=== PATIENT | male | born 1930 | race Caucasian/White ===

== ENCOUNTER 2017-12-24 01:59 | Emergency (ER) | payer MEDICARE, OTHER ==
[~2017-12-24] VITALS: Ht 180.3 cm; Wt 70.8 kg
[2017-12-24 01:13] VITALS: BP 199/79
[~2017-12-24 01:59] MED LIST: ALBU18HF2 INH; AMLO5TAB PO; ASCO500C15 PO; ATOR20TA66 PO; CHOL100024 PO; CLOP75TA15 PO; CYAN-19 PO; FINA5TAB11 PO; LEVO75TA PO; LORA10TA7 PO; METO25TA6 PO; OMEP40CA37 PO; TAMS0.4C32 PO; TIOT18CA3 INH
== END 2017-12-24 02:31 | disposition home or self-care (01) ==
LOC: ER 02:31
DX: K94.23 Gastrostomy malfunction (principal); I10 Essential (primary) hypertension; J44.9 Chronic obstructive pulmonary disease, unspecified; Z98.890 Other specified postprocedural states; Z88.8 Allergy status to other drugs, medicaments and biological substances; Z79.899 Other long term (current) drug therapy
CPT/HCPCS: 43760; 99284; A6251

== ENCOUNTER 2018-01-25 14:16 | Outpatient (CLI) | payer MEDICARE, OTHER, BC ==
[2018-01-25] MEDS ORDERED: diatrozoate meglu/diatrozoate sod (37% iodine) 120ML oral solution ONE (14:40)
== END 2018-01-25 23:59 | disposition home or self-care (01) ==
LOC: RAD 14:16
PROVIDERS: ATTEND Surgery
DX: Z01.818 Encounter for other preprocedural examination (principal); C76.0 Malignant neoplasm of head, face and neck; M47.816 Spondylosis without myelopathy or radiculopathy, lumbar region; M16.0 Bilateral primary osteoarthritis of hip; I10 Essential (primary) hypertension; J44.9 Chronic obstructive pulmonary disease, unspecified; Z79.899 Other long term (current) drug therapy; Z87.891 Personal history of nicotine dependence
CPT/HCPCS: 74018; Q9963

== ENCOUNTER 2019-04-26 09:45 | Emergency (ER) | payer MEDICARE, BC ==
[~2019-04-26] VITALS: Ht 180.3 cm; Wt 72.7 kg
[~2019-04-26 09:45] MED LIST changes: -CYAN-19 PO; +CYAN-51 PO; +OMEP40CA13 PO; -OMEP40CA37 PO
[2019-04-26] MEDS ORDERED: CefTRIAXone 2gm/D5W 50ml 50 ML IV ONE (10:05)
[2019-04-26 11:14] LABS: BASOPHILS % (AUTO) 0.3 % (0-1); EOSINOPHILS % (AUTO) 0.6 % (0-6); HEMATOCRIT 40.3 % (42.0-52.0); HEMOGLOBIN 13.4 g/dl (14.0-17.9); LYMPHOCYTES # (AUTO) 0.4 X10'3 (1.1-4.8); LYMPHOCYTES % (AUTO) 4.5 % (21-51); MEAN CORPUSCULAR HGB CONC 33.3 g/dL (33.0-36.5); MEAN CORPUSCULAR VOLUME 81.1 FL (78-98); MEAN PLATELET VOLUME 8.8 FL (7.4-10.4); MONOCYTES # (AUTO) 0.9 X10'3 (0-0.9); MONOCYTES % (AUTO) 10.7 % (2-12); NEUTROPHILS % (AUTO) 83.9 % (42-75); PLATELET COUNT 175 X10'3 (140-440); RED BLOOD COUNT 4.98 X10'6 (4.70-6.10); RED CELL DISTRIBUTION WIDTH 15.6 % (11.5-14.5); WHITE BLOOD COUNT 8.3 X10'3 (4.5-11.0)
[2019-04-26 11:40] LABS: ALANINE AMINOTRANSFERASE 29 U/L (12-78); ALBUMIN 2.8 G/DL (3.4-5.0); ALBUMIN/GLOBULIN RATIO 0.7 (1.1-1.5); ALKALINE PHOSPHATASE 95 IU/L (46-116); ANION GAP 2 (8-16); ASPARTATE AMINO TRANSFERASE 24 U/L (10-37); BILIRUBIN,TOTAL 0.6 MG/DL (0.1-1.0); BLOOD UREA NITROGEN 36 MG/DL (7-18); BUN/CREATININE RATIO 23.2 (5.4-32.0); CALCIUM 8.6 MG/DL (8.5-10.1); CHLORIDE 101 MMOL/L (99-107); CREATININE 1.55 MG/DL (0.60-1.10); GLUCOSE 125 MG/DL (70-104); MAGNESIUM 2.5 MG/DL (1.5-2.4); POTASSIUM 4.8 MMOL/L (3.5-5.1); SODIUM 135 MMOL/L (135-145); TOTAL CARBON DIOXIDE 31.9 MMOL/L (24-32); TOTAL PROTEIN 6.7 G/DL (6.4-8.2); eGFR 43 ML/MIN
[2019-04-26] MEDS ORDERED: DOXY-243 PO (11:48)
[2019-04-26 12:51] VITALS: BP 165/72
== END 2019-04-26 12:57 | disposition home or self-care (01) ==
LOC: ER 09:45
DX: R91.8 Other nonspecific abnormal finding of lung field (principal); R06.02 Shortness of breath; J44.9 Chronic obstructive pulmonary disease, unspecified; I10 Essential (primary) hypertension; Z98.890 Other specified postprocedural states; Z88.8 Allergy status to other drugs, medicaments and biological substances; Z79.899 Other long term (current) drug therapy
CPT/HCPCS: 36415; 71046; 80053; 83605; 83735; 84145; 85025; 87040; 87502; 87503; 93005; 96365; 99285; J0696

== ENCOUNTER 2020-08-22 05:56 | Emergency (ER) | payer OTHER ==
[~2020-08-22] VITALS: Ht 180.3 cm; Wt 71.8 kg
[~2020-08-22 05:56] MED LIST changes: -ASCO500C15 PO; +ASCO500C18 PO; +LOP25T PO; -METO25TA6 PO; -OMEP40CA13 PO; +OMEP40CA21 PO
--- NOTE | 2020-08-22 06:13 | NUR ---
Needs 18 Singaporean, regular, G-tube
[2020-08-22 06:15] VITALS: BP 212/78
--- NOTE | 2020-08-22 06:38 | NUR ---
called OR to get [address] almonte request.
== END 2020-08-22 07:19 | disposition home or self-care (01) ==
LOC: ER 05:56
DX: K94.23 Gastrostomy malfunction (principal); I10 Essential (primary) hypertension; J44.9 Chronic obstructive pulmonary disease, unspecified; Z87.01 Personal history of pneumonia (recurrent); Z85.9 Personal history of malignant neoplasm, unspecified; Z88.8 Allergy status to other drugs, medicaments and biological substances; Z79.899 Other long term (current) drug therapy; Y83.3 Surgical operation with formation of external stoma as the cause of abnormal reaction of the patient, or of later complication, without mention of misadventure at the time of the procedure; Y73.1 Therapeutic (nonsurgical) and rehabilitative gastroenterology and urology devices associated with adverse incidents
CPT/HCPCS: 43762; 99284

== ENCOUNTER 2021-12-09 14:31 | Inpatient (IN) | payer OTHER, MEDICARE, BC ==
[~2021-12-09] VITALS: Ht 167.6 cm; Wt 60.0 kg
[2021-12-09] MEDS ORDERED: ipratropium/albuterol 3ml nebule NEB ONE (15:00)
[2021-12-09 15:09] LABS: BASOPHILS % (AUTO) 0.2 % (0-1); EOSINOPHILS % (AUTO) 0.1 % (0-6); HEMATOCRIT 25.8 % (42.0-52.0); HEMOGLOBIN 8.6 g/dl (14.0-17.9); LYMPHOCYTES # (AUTO) 0.3 X10'3 (1.1-4.8); LYMPHOCYTES % (AUTO) 2.2 % (21-51); MEAN CORPUSCULAR HEMOGLOBIN 27.1 PG (27.0-31.0); MEAN CORPUSCULAR HGB CONC 33.3 g/dL (33.0-36.5); MEAN CORPUSCULAR VOLUME 81.4 FL (78-98); MEAN PLATELET VOLUME 8.1 FL (7.4-10.4); MONOCYTES # (AUTO) 1.1 X10'3 (0-0.9); MONOCYTES % (AUTO) 8.3 % (2-12); NEUTROPHILS # (AUTO) 11.4 X10'3 (1.8-7.7); NEUTROPHILS % (AUTO) 89.2 % (42-75); PLATELET COUNT 164 X10'3 (140-440); RED BLOOD COUNT 3.17 X10'6 (4.70-6.10); RED CELL DISTRIBUTION WIDTH 16.2 % (11.5-14.5); WHITE BLOOD COUNT 12.8 X10'3 (4.5-11.0)
[2021-12-09 15:28] LABS: ALANINE AMINOTRANSFERASE 43 U/L (12-78); ALBUMIN 3.4 G/DL (3.4-5.0); ALBUMIN/GLOBULIN RATIO 1.1 (1.1-1.5); ALKALINE PHOSPHATASE 114 IU/L (46-116); ANION GAP 7 (8-16); ASPARTATE AMINO TRANSFERASE 49 U/L (10-37); BILIRUBIN,TOTAL 1.5 MG/DL (0.1-1.0); BLOOD UREA NITROGEN 36 MG/DL (7-18); BUN/CREATININE RATIO 16.4 (5.4-32.0); CALCIUM 9.2 MG/DL (8.5-10.1); CHLORIDE 87 MMOL/L (99-107); CREATININE 2.19 MG/DL (0.60-1.10); GLUCOSE 150 MG/DL (70-104); POTASSIUM 3.9 MMOL/L (3.5-5.1); SODIUM 127 MMOL/L (135-145); TOTAL CARBON DIOXIDE 32.7 MMOL/L (24-32); TOTAL PROTEIN 6.4 G/DL (6.4-8.2); eGFR 28 ML/MIN
[2021-12-09] MEDS ORDERED: furosemide 10 MG/1 ML 10ml inj IV ONE (15:35)
[2021-12-09] MEDS ORDERED: CefTRIAXone 2gm/D5W 50ml BAG 50 ML IV ONE (15:35)
[2021-12-09] MEDS ORDERED: heparin 25,000 UNIT/250ml bag 250 ML IV PRN (15:35)
[2021-12-09] MEDS ORDERED: heparin 10,000 units/1 ML INJ IV ONE (15:35)
[2021-12-09] MEDS ORDERED: LIDOcaine 2% 10ml TOPICAL JELLY (Urojet) TP ONE (15:35)
[2021-12-09 16:21] LABS: ABG BASE EXCESS 8.7 mmol/L (-2.0-2.0); ABG HCO3 33.4 mmol/L (22.0-26.0); ABG PCO2 (T) 46.9 mmHg (35.0-48.0); ABG PO2 (T) 59.1 mmHg (75.0-100.0); ALLEN'S TEST POSITIVE; FLOW 10 L/min; FMetHb 0.1 % (0.0-1.5); TOTAL HEMOGLOBIN 9.7 G/dl (14.0-17.9)
[2021-12-09] MEDS ORDERED: piperacillin/tazo 3.375gm/50ml 50 ML IV ONE (16:50)
--- NOTE | 2021-12-09 17:14 | NUR ---
DR HERNÁNDEZ AT BEDSIDE ,TALKING TO THE PT ,PT SPO2 DROPPED DOWN TO 72 % WHEN PT COUGHED UP AND THE T TUBE ACCIDENTLY DISLODGED.RT CALLED AT BEDSIDE .
[2021-12-09] MEDS ORDERED: HYDROcodone/acetaminophen 5mg/325mg tablet PO PRN (17:20)
[2021-12-09] MEDS ORDERED: acetaminophen 325mg tablet PO PRN ×2 (17:20)
[2021-12-09] MEDS ORDERED: mag hydrox/Alum hydrox/simeth 30ml oral suspension PO PRN (17:20)
[2021-12-09] MEDS ORDERED: ondansetron/PF 4mg/2ml inj IV PRN (17:20)
[2021-12-09] MEDS ORDERED: magnesium hydroxide 30ml (MOM) UD suspension PO PRN (17:20)
[2021-12-09] MEDS ORDERED: morphine 2 MG/ML inj. syringe IV PRN ×2 (17:20)
[2021-12-09 18:05] LABS: APTT > 139 SECONDS (22-32)
[2021-12-09] MEDS ORDERED: CLOP75TA34 PO (18:39)
[2021-12-09] MEDS ORDERED: OMEP1PAC7 PO (18:40)
[2021-12-09] MEDS ORDERED: FLO0.4C PO (18:42)
[2021-12-09] MEDS ORDERED: LEVO88TA2 PO (18:42)
[2021-12-09] MEDS ORDERED: FERR220S7 PO (18:42)
[2021-12-09] MEDS ORDERED: TIOT4MIS3 INH (18:42)
[2021-12-09] MEDS ORDERED: FLUT16SP NS (18:48)
[2021-12-09] MEDS ORDERED: FURO20TA4 PO (18:48)
[2021-12-09] MEDS ORDERED: AMLO2.5T5 PO (18:48)
[2021-12-09] MEDS ORDERED: FINA5TAB11 PO (19:07)
--- NOTE | 2021-12-09 19:43 | NUR ---
RT AT BEDSIDE.
[2021-12-09 19:54] LABS: ABG BASE EXCESS 6.4 mmol/L (-2.0-2.0); ABG HCO3 30.4 mmol/L (22.0-26.0); ABG OXYGEN SATURATION 92.3 % (94-97); ABG PCO2 (T) 40.8 mmHg (35.0-48.0); ABG PO2 (T) 64.4 mmHg (75.0-100.0); ALLEN'S TEST POSITIVE; FCOHb 0.8 % (0.0-3.9); FLOW 40 L/min; FMetHb 0.2 % (0.0-1.5); FO2Hb 91.4 % (94-97); PATIENT TEMPERATURE 36.6; TOTAL HEMOGLOBIN 9.2 G/dl (14.0-17.9)
[2021-12-09] MEDS: ipratropium/albuterol 3ml nebule NEB SCH ×2 (19:55→23:41)
[2021-12-09] MEDS: acetylcysteine 200 MG/ml 4ml vial INH SCH ×2 (19:55→23:41)
[2021-12-09] MEDS: cefepime 1GM/NS ADD-VANTAGE 100 ML IV SCH (20:00)
[2021-12-09] MEDS ORDERED: vancomycin/NS 1 GM ADD-VANTAGE 250 ML IV SCH (20:00)
[2021-12-09] MEDS: docusate sod 100mg capsule PO SCH (20:00)
--- NOTE | 2021-12-09 20:00 | NUR ---
PATIENT REPOSITIONED TO LEFT SIDE AT THIS TIME FOR COMFORT. BLANKETS PLACED BEHIND SACRUM FOR COMFORT, HOB ELEVATED, RT AT BEDSIDE.
--- NOTE | 2021-12-09 20:05 | NUR ---
PAGE SENT TO [facility] YOSEF JOHNSON TO CHANGE DIET TO TUBE FEEDING AND TABLETS/CAPSULE MEDICATIONS TO LIQUID (SEE EMAR).
[2021-12-09] MEDS ORDERED: acetaminophen 325mg tablet GT PRN ×2 (20:53)
[2021-12-09] MEDS: furosemide 20 MG/2 ML vial IV SCH (21:04)
--- NOTE | 2021-12-09 22:14 | NUR ---
TRACH TUBING SUCTIONED WITH YANKAUR AT THIS TIME.
[2021-12-09] MEDS ORDERED: heparin 10,000 units/1 ML INJ IV PRN (22:45)
--- NOTE | 2021-12-10 00:22 | NUR ---
HEPARIN GTT STOPPED DUE TO BERGER CATH DRAINING DK RED URINE. NOTIFIED DR JOHNSON AND AWAITING HER ARRIVAL
--- NOTE | 2021-12-10 00:35 | NUR ---
DR JOHNSON EVALUATING PT AT BEDSIDE, SEE NEW ORDERS.
--- NOTE | 2021-12-10 02:00 | NUR ---
PT DESATURATED JOHN TO 80'S AND LOW 78%. SLIGHT RESISTANCE WITH DEEP SUCTIONING, NOTIFIED RT WHO WS ABLE TO DEEP SUCTION PT. PT O2 SAT UP TO 98%. BERGER CATH CONTINUES TO DRAIN DK RED URINE WITH CLOTS
[2021-12-10 02:43] LABS: BASOPHILS % (AUTO) 0.2 % (0-1); EOSINOPHILS % (AUTO) 0.2 % (0-6); HEMATOCRIT 23.3 % (42.0-52.0); HEMOGLOBIN 7.9 g/dl (14.0-17.9); LYMPHOCYTES # (AUTO) 0.6 X10'3 (1.1-4.8); LYMPHOCYTES % (AUTO) 6.7 % (21-51); MEAN CORPUSCULAR HEMOGLOBIN 27.7 PG (27.0-31.0); MEAN CORPUSCULAR VOLUME 81.5 FL (78-98); MEAN PLATELET VOLUME 8.2 FL (7.4-10.4); MONOCYTES % (AUTO) 11.5 % (2-12); NEUTROPHILS % (AUTO) 81.4 % (42-75); PLATELET COUNT 153 X10'3 (140-440); RED BLOOD COUNT 2.86 X10'6 (4.70-6.10); WHITE BLOOD COUNT 8.6 X10'3 (4.5-11.0)
[2021-12-10 02:59] LABS: ANION GAP 5 (8-16); BLOOD UREA NITROGEN 38 MG/DL (7-18); CHLORIDE 91 MMOL/L (99-107); CREATININE 2.23 MG/DL (0.60-1.10); GLUCOSE 112 MG/DL (70-104); SODIUM 130 MMOL/L (135-145); eGFR 28 ML/MIN
[2021-12-10] MEDS: ipratropium/albuterol 3ml nebule NEB SCH ×6 (03:44→23:23)
[2021-12-10] MEDS: acetylcysteine 200 MG/ml 4ml vial INH SCH ×6 (03:44→23:23)
--- NOTE | 2021-12-10 06:15 | NUR ---
Heparin off when pt received, 150ml bloody urine out from the cath.HOB kept elevated.
--- NOTE | 2021-12-10 07:14 | NUR ---
RN paged RT @ [phone], requesting suctioning of trach tube. Awaiting arrival.
[2021-12-10] MEDS ORDERED: vancomycin/NS 1 GM ADD-VANTAGE 250 ML IV PRN (07:45)
[2021-12-10] MEDS ORDERED: VANCOMYCIN LEVEL IV ONE (07:45)
[2021-12-10] MEDS: docusate sod 100mg capsule PO SCH ×2 (08:00→20:00)
--- NOTE | 2021-12-10 08:15 | NUR ---
RT AT BEDSIDE.
[2021-12-10] MEDS ORDERED: albuterol 2.5 MG/3 ML nebule NEB PRN (08:45)
--- NOTE | 2021-12-10 10:28 | NUR ---
angio at bedside attempted to do para however, pt is hypotensive.Pt on trendelenberg.We will monitor. Addendum: 12/10/21 at 1029 by TENNILLE incorrect patient.
[2021-12-10] MEDS: furosemide 20 MG/2 ML vial IV SCH (10:56)
[2021-12-10] MEDS: cefepime 1GM/NS ADD-VANTAGE 100 ML IV SCH ×2 (11:08→21:37)
--- NOTE | 2021-12-10 11:31 | NUR ---
med lists from patient's chart faxed to pharmacy.
[2021-12-10] MEDS ORDERED: ATOR20TA66 PO (11:45)
[2021-12-10] MEDS ORDERED: LOSA50TA64 PO (11:45)
--- NOTE | 2021-12-10 11:46 | NUR ---
Pt transferred to 3028 A with EMT, RN, and RT. Pt stable upon arrival to unit. DOROTHEA Mcdonnell at bedside.
[2021-12-10 12:10] VITALS: BP 143/50
--- NOTE | 2021-12-10 13:07 | NUR ---
TF Consult: Pt admit s/p fall w/ increasing weakness PHYSICAL THERAPY ASSISTANT DX possible PNA and CHF per EMR. 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 Pt seen by RD at bedside; pt reports takes Suplena QID has one 237ml bottle at bedside for next feeding time and typically uses 10-12oz water flush per bolus at home. One bottle QID at home w/ reported home water flushes would provide 948ml volume/day, 1678 kcals, 42g protein, and 2116ml water/day. Noted serum Na 127mmol/L on admit and if current non-scaled wt is accurate would be receiving 35ml/kg water per day; possibly excess. Suplena is also a specialty formula for CKD though only hx SUMANTH from prior sepsis per EMR; pt reports has been told kidneys "are weakened" unable to provide further hx. Suplena not on current formulary; EN recs below using IBW pending scaled wt and considering current Jevity 1.2 shortage. Home bolus EN recs below as well given electrolyte presentation on admit. Will monitor for EN tolerance and adjustment needs as medically indicated. Rec: 1. Bolus TF via G-tube per MD using Glucerna 1.2 350ml goal bolus QID at 0700, 1100, 1500, and 1900. To provide 1400ml volume/day, 1680 kcals, 1127ml water, and 84g protein. Initiate at 237ml bolus and advance 113ml per bolus to goal as tolerated. 2. additional water flush 70ml before and after each bolus; monitor serum Na 3. PALB Q /; daily scaled wts 4. monitor for scaled wt and EN adjustment needs/tolerance 5. consider serum Phos level per physician discretion given lower-Phos home formula; no hx CKD per EMR 6. routine bowel regimen HOME BOLUS TUBE FEED RECS: 1. Bolus TF via G-tube per MD using Jevity 1.5 or equivalent at 275ml goal bolus QID 0700, 1100, 1500, and 1900. To provide 1100ml volume/day, 1650 kcals, 836ml water, and 70g protein. 2. additional water flush 105ml before and after each bolus; monitor serum Na 3. Outpatient RD to titrate rate, formula, and free water based on pt individualized needs Addendum: 12/10/21 at [address] Amended: Links added.
[2021-12-10] MEDS ORDERED: fluticasone nasal spray 16GM bottle NS PRN (14:10)
[2021-12-10 15:00] VITALS: BP 145/60
[2021-12-10] MEDS: methylPREDNISolone sod succ 125mg/2ml vial IV SCH (16:40)
[2021-12-10 18:00] VITALS: BP 134/58
[2021-12-10] MEDS: tamsulosin 0.4mg capsule PO SCH (21:00)
[2021-12-10 22:00] VITALS: BP 139/55
--- NOTE | 2021-12-10 22:10 | NUR ---
CALLED PT'S NEIGHBOR NAMED STEPHANIE FOR PT'S [employer]ov[employer] CONNECTOR PER PT'S REQUEST. DID NOT ANSWER AND NO VOICE MAIL AVAILABLE. LET PT KNOW. WILL F/U TOMORROW.
[2021-12-11] MEDS: methylPREDNISolone sod succ 125mg/2ml vial IV SCH ×3 (00:22→16:38)
[2021-12-11 03:00] VITALS: BP 132/56
[2021-12-11] MEDS: ipratropium/albuterol 3ml nebule NEB SCH ×9 (03:00→23:32)
[2021-12-11] MEDS: VANCOMYCIN LEVEL IV SCH (03:00)
[2021-12-11] MEDS: acetylcysteine 200 MG/ml 4ml vial INH SCH ×5 (03:34→23:32)
[2021-12-11 04:39] LABS: ALBUMIN 2.8 G/DL (3.4-5.0); ANION GAP 9 (8-16); BLOOD UREA NITROGEN 50 MG/DL (7-18); BUN/CREATININE RATIO 20.1 (5.4-32.0); CALCIUM 8.6 MG/DL (8.5-10.1); CHLORIDE 92 MMOL/L (99-107); CREATININE 2.49 MG/DL (0.60-1.10); GLUCOSE 114 MG/DL (70-104); POTASSIUM 3.5 MMOL/L (3.5-5.1); SODIUM 133 MMOL/L (135-145); TOTAL CARBON DIOXIDE 32.1 MMOL/L (24-32); VANCOMYCIN,RANDOM 6.9 UG/ML; eGFR 25 ML/MIN
[2021-12-11 07:10] LABS: BASOPHILS % (AUTO) 0 % (0-1); EOSINOPHILS % (AUTO) 0 % (0-6); HEMOGLOBIN 7.3 g/dl (14.0-17.9); LYMPHOCYTES # (AUTO) 0.2 X10'3 (1.1-4.8); MEAN CORPUSCULAR HEMOGLOBIN 27.9 PG (27.0-31.0); MEAN CORPUSCULAR HGB CONC 34.1 g/dL (33.0-36.5); MEAN CORPUSCULAR VOLUME 81.8 FL (78-98); MEAN PLATELET VOLUME 8.1 FL (7.4-10.4); MONOCYTES # (AUTO) 0.6 X10'3 (0-0.9); MONOCYTES % (AUTO) 7.1 % (2-12); NEUTROPHILS # (AUTO) 7.1 X10'3 (1.8-7.7); NEUTROPHILS % (AUTO) 89.9 % (42-75); PLATELET COUNT 137 X10'3 (140-440); WHITE BLOOD COUNT 7.9 X10'3 (4.5-11.0)
[2021-12-11 07:14] LABS: HEMATOCRIT 21.3 % (42.0-52.0)
--- NOTE | 2021-12-11 07:17 | NUR ---
CRITICAL LAB REPORTED TO PRIMARY RN
[2021-12-11 07:26] LABS: % IRON SATURATION 5 % (11-46); IRON 13 UG/DL (53-167); TOTAL IRON BINDING CAPACITY 281 UG/DL (259-388)
[2021-12-11] MEDS ORDERED: iron sucrose complex injection 500 MG in normal saline 250ml IV soln 250 ML IV ONE (07:55)
[2021-12-11] MEDS ORDERED: OMEPRAZOLE BICARB PO SCH (08:00)
[2021-12-11] MEDS: finasteride 5mg tablet PO SCH (08:00)
[2021-12-11] MEDS: docusate sod 100mg capsule PO SCH ×2 (08:00→19:05)
[2021-12-11] MEDS: ferrous sulfate 300mg/5ml UD oral liquid PO SCH (08:00)
[2021-12-11] MEDS ORDERED: furosemide 20MG tablet PO SCH (08:00)
[2021-12-11] MEDS ORDERED: amLODIPine 2.5mg tablet PO SCH (08:00)
[2021-12-11] MEDS: furosemide 20 MG/2 ML vial IV SCH (09:14)
[2021-12-11] MEDS: cefepime 1GM/NS ADD-VANTAGE 100 ML IV SCH (09:21)
[2021-12-11 12:13] VITALS: BP 137/56
[2021-12-11] MEDS ORDERED: vancomycin/NS 1 GM ADD-VANTAGE 250 ML IV ONE (12:55)
[2021-12-11] MEDS: levoTHYROXINE 88mcg tablet PO SCH (14:16)
[2021-12-11] MEDS: clopidogrel 75mg tablet PO SCH ×2 (14:16→14:33)
[2021-12-11] MEDS: losartan 25mg tablet PO SCH (14:16)
[2021-12-11] MEDS ORDERED: LOSA50TA64 PO (14:39)
[2021-12-11 14:43] LABS: HEMATOCRIT 22.9 % (42.0-52.0); HEMOGLOBIN 7.8 g/dl (14.0-17.9); MEAN CORPUSCULAR HEMOGLOBIN 27.9 PG (27.0-31.0); MEAN CORPUSCULAR HGB CONC 34.1 g/dL (33.0-36.5); MEAN CORPUSCULAR VOLUME 81.7 FL (78-98); MEAN PLATELET VOLUME 8.2 FL (7.4-10.4); PLATELET COUNT 141 X10'3 (140-440); RED BLOOD COUNT 2.81 X10'6 (4.70-6.10); RED CELL DISTRIBUTION WIDTH 16.1 % (11.5-14.5); WHITE BLOOD COUNT 8.6 X10'3 (4.5-11.0)
[2021-12-11 15:14] VITALS: BP 133/51
[2021-12-11] MEDS: lansoprazole 15mg solutab PO SCH (16:39)
[2021-12-11 18:00] VITALS: BP 129/55
[2021-12-11] MEDS: tamsulosin 0.4mg capsule PO SCH (21:00)
[2021-12-11 22:00] VITALS: BP 128/52
[2021-12-12] MEDS: ipratropium/albuterol 3ml nebule NEB SCH ×7 (03:00→23:19)
[2021-12-12] MEDS: VANCOMYCIN LEVEL IV SCH (03:00)
[2021-12-12] MEDS: acetylcysteine 200 MG/ml 4ml vial INH SCH ×4 (03:20→16:00)
[2021-12-12 06:23] LABS: BASOPHILS % (AUTO) 0.1 % (0-1); EOSINOPHILS % (AUTO) 0 % (0-6); HEMOGLOBIN 7.2 g/dl (14.0-17.9); LYMPHOCYTES # (AUTO) 0.4 X10'3 (1.1-4.8); MEAN CORPUSCULAR HEMOGLOBIN 27.1 PG (27.0-31.0); MEAN CORPUSCULAR HGB CONC 32.8 g/dL (33.0-36.5); MEAN CORPUSCULAR VOLUME 82.6 FL (78-98); MEAN PLATELET VOLUME 8.5 FL (7.4-10.4); MONOCYTES # (AUTO) 1.5 X10'3 (0-0.9); MONOCYTES % (AUTO) 12.9 % (2-12); PLATELET COUNT 148 X10'3 (140-440); RED BLOOD COUNT 2.64 X10'6 (4.70-6.10); RED CELL DISTRIBUTION WIDTH 16.6 % (11.5-14.5); WHITE BLOOD COUNT 11.9 X10'3 (4.5-11.0)
[2021-12-12 06:26] LABS: HEMATOCRIT 21.8 % (42.0-52.0)
--- NOTE | 2021-12-12 06:34 | NUR ---
Problems reprioritized. Patient report given, questions answered & plan of care reviewed with Beth PIEDRA.
[2021-12-12 07:00] VITALS: BP 136/58
[2021-12-12 07:24] LABS: ALBUMIN 2.6 G/DL (3.4-5.0); ANION GAP 8 (8-16); BLOOD UREA NITROGEN 73 MG/DL (7-18); BUN/CREATININE RATIO 26.4 (5.4-32.0); CALCIUM 8.5 MG/DL (8.5-10.1); CHLORIDE 94 MMOL/L (99-107); CREATININE 2.77 MG/DL (0.60-1.10); GLUCOSE 139 MG/DL (70-104); POTASSIUM 3.4 MMOL/L (3.5-5.1); SODIUM 134 MMOL/L (135-145); VANCOMYCIN,RANDOM 15.3 UG/ML; eGFR 22 ML/MIN
--- NOTE | 2021-12-12 07:35 | NUR ---
Paged PAGER ID: [phone] MESSAGE: [id number]. Critical hct 21.8. Beth Castillo [phone]
[2021-12-12] MEDS: finasteride 5mg tablet PO SCH (08:00)
[2021-12-12] MEDS: docusate sod 100mg capsule PO SCH (08:00)
[2021-12-12] MEDS: losartan 25mg tablet PO SCH (09:20)
[2021-12-12] MEDS: lansoprazole 15mg solutab PO SCH (09:21)
[2021-12-12] MEDS: clopidogrel 75mg tablet PO SCH (09:21)
[2021-12-12] MEDS: levoTHYROXINE 88mcg tablet PO SCH (09:21)
[2021-12-12] MEDS: ferrous sulfate 300mg/5ml UD oral liquid PO SCH (09:25)
[2021-12-12] MEDS: furosemide 20 MG/2 ML vial IV SCH (09:38)
[2021-12-12] MEDS: methylPREDNISolone sod succ 125mg/2ml vial IV SCH ×3 (09:38→17:22)
[2021-12-12] MEDS: cefepime inj. 0.5 GM in normal saline 100ml IV soln 100 ML IV SCH (10:17)
[2021-12-12 11:00] VITALS: BP 126/52
[2021-12-12 15:00] VITALS: BP 113/52
[2021-12-12 18:00] VITALS: BP 112/51
[2021-12-12] MEDS ORDERED: mag hydrox/Alum hydrox/simeth 30ml oral suspension PEG PRN (18:08)
[2021-12-12] MEDS ORDERED: magnesium hydroxide 30ml (MOM) UD suspension PEG PRN (18:09)
--- NOTE | 2021-12-12 18:56 | NUR ---
Student documentation: I have reviewed and agree with all interventions, assessments performed and documented by Joselin.
[2021-12-12] MEDS ORDERED: POTASSIUM BICARB 20meq eff tab 20 MEQ TABLET.EFF GT ONE (19:00)
[2021-12-12] MEDS: docusate sodium 100mg/10ml UD cup PEG SCH (19:37)
[2021-12-12] MEDS: tamsulosin 0.4mg capsule PO SCH (21:52)
[2021-12-12 22:00] VITALS: BP 112/54
[2021-12-13] MEDS: methylPREDNISolone sod succ 125mg/2ml vial IV SCH ×3 (00:39→16:00)
[2021-12-13 02:00] VITALS: BP 109/56
[2021-12-13] MEDS: VANCOMYCIN LEVEL IV SCH (03:00)
[2021-12-13] MEDS: ipratropium/albuterol 3ml nebule NEB SCH ×4 (03:00→20:41)
[2021-12-13 06:00] VITALS: BP 111/52
[2021-12-13 06:03] LABS: BASOPHILS % (AUTO) 0.1 % (0-1); EOSINOPHILS % (AUTO) 0 % (0-6); HEMOGLOBIN 7.2 g/dl (14.0-17.9); LYMPHOCYTES # (AUTO) 0.3 X10'3 (1.1-4.8); LYMPHOCYTES % (AUTO) 3.1 % (21-51); MEAN CORPUSCULAR HEMOGLOBIN 27.5 PG (27.0-31.0); MEAN CORPUSCULAR HGB CONC 32.8 g/dL (33.0-36.5); MEAN CORPUSCULAR VOLUME 83.7 FL (78-98); MEAN PLATELET VOLUME 8.5 FL (7.4-10.4); MONOCYTES # (AUTO) 0.3 X10'3 (0-0.9); MONOCYTES % (AUTO) 3.8 % (2-12); NEUTROPHILS # (AUTO) 7.6 X10'3 (1.8-7.7); PLATELET COUNT 154 X10'3 (140-440); RED BLOOD COUNT 2.62 X10'6 (4.70-6.10); RED CELL DISTRIBUTION WIDTH 16.7 % (11.5-14.5); WHITE BLOOD COUNT 8.1 X10'3 (4.5-11.0)
[2021-12-13 06:21] LABS: ALBUMIN 2.6 G/DL (3.4-5.0); ANION GAP 10 (8-16); BLOOD UREA NITROGEN 90 MG/DL (7-18); BUN/CREATININE RATIO 31.3 (5.4-32.0); CALCIUM 8.3 MG/DL (8.5-10.1); CHLORIDE 95 MMOL/L (99-107); CREATININE 2.88 MG/DL (0.60-1.10); GLUCOSE 154 MG/DL (70-104); POTASSIUM 4.1 MMOL/L (3.5-5.1); PREALBUMIN 15.6 MG/DL (19-36); SODIUM 137 MMOL/L (135-145); TOTAL CARBON DIOXIDE 32.4 MMOL/L (24-32); VANCOMYCIN,RANDOM 12.8 UG/ML; eGFR 21 ML/MIN
--- NOTE | 2021-12-13 06:21 | NUR ---
Pt KATHY BRITT RM 3028A HAS HGB OF 7.2 AND CRITICAL HCT RESULT OF 22.0
--- NOTE | 2021-12-13 06:39 | NUR ---
Problems reprioritized. Patient report given, questions answered & plan of care reviewed with CINTHIA PIEDRA.
[2021-12-13] MEDS: docusate sodium 100mg/10ml UD cup PEG SCH ×2 (07:26→20:00)
[2021-12-13] MEDS: clopidogrel 75mg tablet PEG SCH (07:26)
[2021-12-13] MEDS: ferrous sulfate 300mg/5ml UD oral liquid PEG SCH (07:27)
[2021-12-13] MEDS: losartan 25mg tablet PEG SCH (07:28)
[2021-12-13] MEDS: levoTHYROXINE 88mcg tablet PEG SCH (07:28)
[2021-12-13] MEDS: lansoprazole 15mg solutab PEG SCH (07:28)
[2021-12-13] MEDS: furosemide 20 MG/2 ML vial IV SCH (07:29)
[2021-12-13] MEDS: cefepime inj. 0.5 GM in normal saline 100ml IV soln 100 ML IV SCH (07:36)
[2021-12-13] MEDS ORDERED: vancomycin/NS 1 GM ADD-VANTAGE 250 ML IV ONE (08:00)
[2021-12-13] MEDS: finasteride 5mg tablet PO SCH (08:00)
--- NOTE | 2021-12-13 08:47 | NUR ---
Paged PAGER ID: [phone] MESSAGE: [id number]. [place]. Pt aspirated on TF bolus. Chest x-ray? Beth [phone]
--- NOTE | 2021-12-13 09:12 | NUR ---
PAGER ID: [phone] MESSAGE: [id number]. [place]. Pt aspirated on TF. Putting in order for chest x-ray. Beth [phone]
--- NOTE | 2021-12-13 09:16 | NUR ---
Reassessment; Pt has continued to receive TF bolus at goal though did apparently aspirate this morning per kitchen mechanic. GRV have been WNL though pt has not had documented BM this admit. Receiving routine colace, consider additional bowel care if MD agreeable. No change to recommendations at this time, will continue to monitor. Rec: 1. Bolus TF via G-tube per MD using Glucerna 1.2 350ml goal bolus QID at 0700, 1100, 1500, and 1900. To provide 1400ml volume/day, 1680 kcals, 1127ml water, and 84g protein. Initiate at 237ml bolus and advance 113ml per bolus to goal as tolerated. 2. additional water flush 70ml before and after each bolus; monitor serum Na 3. PALB Q /; daily scaled wts 4. monitor for scaled wt and EN adjustment needs/tolerance 5. consider serum Phos level per physician discretion given lower-Phos home formula; no hx CKD per EMR 6. routine bowel regimen HOME BOLUS TUBE FEED RECS: 1. Bolus TF via G-tube per MD using Jevity 1.5 or equivalent at 275ml goal bolus QID 0700, 1100, 1500, and 1900. To provide 1100ml volume/day, 1650 kcals, 836ml water, and 70g protein. 2. additional water flush 105ml before and after each bolus; monitor serum Na 3. Outpatient RD to titrate rate, formula, and free water based on pt individualized needs Addendum: 12/13/21 at [address] Amended: Links added.
[2021-12-13 10:15] VITALS: BP 114/49
--- NOTE | 2021-12-13 11:00 | NUR ---
Skipping 1100 TF bolus d/t change ion condition. Gastric residuals: 0
--- NOTE | 2021-12-13 11:04 | NUR ---
After receiving 0700 TF, pt appeared to have aspirated. Pt was sitting up at the appropriate angle during bolus and there was 0 gastric residual before bolus & after. Pt c/o of feeling full, stomach is a little distended but he wanted to get the rest of his meal. Pts rr increased from 20 to 26/28 and he started coughing. RT was called, multiple endotracheal suctioning as well as deep suctioning was performed and RT increased trach mist from 8L/50% to 70% then 10L/100% over 30 min span as pt would recover then start coughing again. Dr was paged and CXR was performed. All vitals are stable and pt is resting now.
--- NOTE | 2021-12-13 14:15 | NUR ---
Paged PAGER ID: [phone] MESSAGE: [phone]. [place]a: [facility] call Beth [phone]
--- NOTE | 2021-12-13 14:24 | NUR ---
Message: EBER ON TELE, CAN YOU PLEASE HAVE DR. FOURNIER CALL US REGARDING [phone]. THW
--- NOTE | 2021-12-13 15:00 | NUR ---
Rapid Response called on patient. Pt still throwing up TF through trach, increased oxygen demand. RT in room. NG placed to suction. 850 already suctioned from trach and another 150 from NG and still going. Called [phone]: no answer. Called sonClaudio from face sheet, : not in service. Multiple attempts to Dr Peres with no response.
[2021-12-13 15:45] VITALS: BP 107/51
--- NOTE | 2021-12-13 17:58 | NUR ---
Pt is NPO including TF boluses. NG to low intermittent suction.
[2021-12-13 18:00] VITALS: BP 100/63
--- NOTE | 2021-12-13 18:00 | NUR ---
Patient in room PCU 3028. I have received report from Beth PIEDRA and had the opportunity to ask questions and assume patient care.
--- NOTE | 2021-12-13 18:55 | NUR ---
Walked into pt room and he had pulled out his NG tube. I was able to reinsert with ease and started suction with TF still coming out. This was followed by a episode where pt became unresponsive and HR went into 40's. He then came to and wanted me to call Durga. Called Durga, neighbor at [phone]. Durga asked me to call pts son, Scott. Called Scott [phone]: advised of above. Advised that he should come JARAD. He understands. He wants me to call him tomorrow.
--- NOTE | 2021-12-13 19:20 | NUR ---
Spoke with patient, let him know that I called Durga and Scott. He wanted me to call Durga back to come visit now. Called Durga and left message for him to call us and that patient wants him to come visit.
--- NOTE | 2021-12-13 19:23 | NUR ---
Student documentation: I have reviewed and agree with all interventions, assessments performed and documented by Joselin.
[2021-12-13] MEDS: tamsulosin 0.4mg capsule PO SCH (21:00)
[2021-12-13 22:00] VITALS: BP 100/63
[2021-12-14 02:00] VITALS: BP 100/63
[2021-12-14] MEDS: ipratropium/albuterol 3ml nebule NEB SCH ×7 (03:19→23:32)
[2021-12-14 06:00] VITALS: BP 120/54
[2021-12-14 06:40] LABS: BASOPHILS % (AUTO) 0.1 % (0-1); EOSINOPHILS % (AUTO) 0 % (0-6); HEMOGLOBIN 7.6 g/dl (14.0-17.9); MEAN PLATELET VOLUME 8.1 FL (7.4-10.4); MONOCYTES # (AUTO) 1.3 X10'3 (0-0.9)
[2021-12-14 06:45] LABS: HEMATOCRIT 23.4 % (42.0-52.0); LYMPHOCYTES # (AUTO) 0.2 X10'3 (1.1-4.8); LYMPHOCYTES % (AUTO) 2.1 % (21-51); MEAN CORPUSCULAR HEMOGLOBIN 27.7 PG (27.0-31.0); MEAN CORPUSCULAR HGB CONC 32.5 g/dL (33.0-36.5); MEAN CORPUSCULAR VOLUME 85.1 FL (78-98); MONOCYTES % (AUTO) 11.5 % (2-12); NEUTROPHILS # (AUTO) 9.8 X10'3 (1.8-7.7); NEUTROPHILS % (AUTO) 86.3 % (42-75); PLATELET COUNT 184 X10'3 (140-440); RED BLOOD COUNT 2.75 X10'6 (4.70-6.10); RED CELL DISTRIBUTION WIDTH 16.6 % (11.5-14.5); WHITE BLOOD COUNT 11.3 X10'3 (4.5-11.0)
[2021-12-14] MEDS: levoTHYROXINE 88mcg tablet PEG SCH (07:00)
[2021-12-14 07:12] LABS: ALBUMIN 2.9 G/DL (3.4-5.0); ANION GAP 15 (8-16); BLOOD UREA NITROGEN 114 MG/DL (7-18); BUN/CREATININE RATIO 29.9 (5.4-32.0); CALCIUM 8.4 MG/DL (8.5-10.1); CHLORIDE 95 MMOL/L (99-107); CREATININE 3.81 MG/DL (0.60-1.10); GLUCOSE 146 MG/DL (70-104); SODIUM 139 MMOL/L (135-145); TOTAL CARBON DIOXIDE 28.9 MMOL/L (24-32); eGFR 15 ML/MIN
[2021-12-14 07:40] LABS: ANISOCYTOSIS 1+; ELLIPTOCYTES FEW; NUCLEATED RED BLOOD CELLS 1 /100WBC (0-0); PLATELET ESTIMATE NORMAL; POLYCHROMASIA FEW; TOTAL CELLS COUNTED 100
[2021-12-14 07:41] LABS: POIKILOCYTOSIS 1+
[2021-12-14 07:42] LABS: BURR CELLS FEW
[2021-12-14] MEDS: losartan 25mg tablet PEG SCH (08:00)
[2021-12-14] MEDS: ferrous sulfate 300mg/5ml UD oral liquid PEG SCH (08:00)
[2021-12-14] MEDS: lansoprazole 15mg solutab PEG SCH (08:00)
[2021-12-14] MEDS: docusate sodium 100mg/10ml UD cup PEG SCH ×2 (08:00→20:00)
[2021-12-14] MEDS: finasteride 5mg tablet PO SCH (08:00)
[2021-12-14] MEDS: clopidogrel 75mg tablet PEG SCH (08:00)
[2021-12-14] MEDS: cefepime inj. 0.5 GM in normal saline 100ml IV soln 100 ML IV SCH (08:18)
[2021-12-14] MEDS: methylPREDNISolone sod succ 125mg/2ml vial IV SCH ×3 (08:18→12:53)
--- NOTE | 2021-12-14 08:35 | NUR ---
Problems reprioritized. Patient report given, questions answered & plan of care reviewed with Beth PIEDRA.
[2021-12-14 10:30] VITALS: BP 126/56
[2021-12-14] MEDS: pantoprazole 40mg IV 40 MG in normal saline 100ml IV soln 100 ML IV SCH ×2 (12:51→19:40)
[2021-12-14 13:00] VITALS: BP 94/55
[2021-12-14 14:50] LABS: HEMATOCRIT 22.6 % (42.0-52.0); HEMOGLOBIN 7.2 g/dl (14.0-17.9); MEAN CORPUSCULAR HEMOGLOBIN 27.5 PG (27.0-31.0); MEAN PLATELET VOLUME 8.2 FL (7.4-10.4); PLATELET COUNT 160 X10'3 (140-440); RED BLOOD COUNT 2.63 X10'6 (4.70-6.10); RED CELL DISTRIBUTION WIDTH 16.6 % (11.5-14.5); WHITE BLOOD COUNT 13.2 X10'3 (4.5-11.0)
--- NOTE | 2021-12-14 15:32 | NUR ---
Returned call to bobby Chavez [phone]: Left message
--- NOTE | 2021-12-14 16:16 | NUR ---
Paged PAGER ID: [phone] MESSAGE: [id number]. NG in gastric fundus. Very little output since this AM. Want me to turn off? Beth [phone]
--- NOTE | 2021-12-14 16:45 | NUR ---
Turned of NG suction per MR order.
--- NOTE | 2021-12-14 17:04 | NUR ---
Paged Davy nurse [phone]. Need RN to assist pt to CT. Can you help? Thx
--- NOTE | 2021-12-14 17:26 | NUR ---
Paged Davy PIEDRA [phone]. [place]iena. Need you for STAT CT? Thx
--- NOTE | 2021-12-14 17:29 | NUR ---
Oral care has been performed throughout shift.
--- NOTE | 2021-12-14 17:37 | NUR ---
Paged Rt [phone]. Siena. Ready to switch to jeannine for CT pls.
--- NOTE | 2021-12-14 17:45 | NUR ---
PT TO CT WITH RN, PT IS AWAKE, RESP EVEN AND SLIGHTLY LABORED, H/O TRACH, HR 68, RR 18
[2021-12-14 18:00] VITALS: BP 110/48
--- NOTE | 2021-12-14 18:00 | NUR ---
PT BACK TO PCU, REPORT TO ZACARIAS PIEDRA
--- NOTE | 2021-12-14 18:30 | NUR ---
Patient in room PCU 3028. I have received report from allan and had the opportunity to ask questions and assume patient care.
[2021-12-14] MEDS: tamsulosin 0.4mg capsule PO SCH (20:11)
[2021-12-14 20:36] LABS: HEMATOCRIT 22.9 % (42.0-52.0); HEMOGLOBIN 7.5 g/dl (14.0-17.9); MEAN CORPUSCULAR HEMOGLOBIN 27.7 PG (27.0-31.0); MEAN CORPUSCULAR HGB CONC 32.8 g/dL (33.0-36.5); MEAN CORPUSCULAR VOLUME 84.6 FL (78-98); MEAN PLATELET VOLUME 8.3 FL (7.4-10.4); PLATELET COUNT 137 X10'3 (140-440); RED BLOOD COUNT 2.71 X10'6 (4.70-6.10); RED CELL DISTRIBUTION WIDTH 16.3 % (11.5-14.5); WHITE BLOOD COUNT 13.5 X10'3 (4.5-11.0)
[2021-12-15 02:00] VITALS: BP 136/61
[2021-12-15 02:33] LABS: HEMATOCRIT 22.8 % (42.0-52.0); HEMOGLOBIN 7.5 g/dl (14.0-17.9); MEAN CORPUSCULAR HEMOGLOBIN 27.9 PG (27.0-31.0); MEAN CORPUSCULAR HGB CONC 32.7 g/dL (33.0-36.5); MEAN CORPUSCULAR VOLUME 85.3 FL (78-98); MEAN PLATELET VOLUME 8.4 FL (7.4-10.4); PLATELET COUNT 120 X10'3 (140-440); RED BLOOD COUNT 2.67 X10'6 (4.70-6.10); RED CELL DISTRIBUTION WIDTH 16.6 % (11.5-14.5); WHITE BLOOD COUNT 11.8 X10'3 (4.5-11.0)
[2021-12-15] MEDS: ipratropium/albuterol 3ml nebule NEB SCH ×6 (03:11→23:35)
[2021-12-15 06:00] VITALS: BP 153/64
--- NOTE | 2021-12-15 06:26 | NUR ---
Problems reprioritized. Patient report given, questions answered & plan of care reviewed with
[2021-12-15] MEDS ORDERED: EPOETIN ALFA-EPBX 20,000 UNIT/ML 1 ML MDV SQ SCH (08:00)
[2021-12-15 08:36] LABS: HEMATOCRIT 22.6 % (42.0-52.0); HEMOGLOBIN 7.4 g/dl (14.0-17.9); MEAN CORPUSCULAR HGB CONC 32.7 g/dL (33.0-36.5); MEAN CORPUSCULAR VOLUME 85.8 FL (78-98); MEAN PLATELET VOLUME 8.6 FL (7.4-10.4); PLATELET COUNT 114 X10'3 (140-440); RED BLOOD COUNT 2.63 X10'6 (4.70-6.10); RED CELL DISTRIBUTION WIDTH 16.6 % (11.5-14.5); WHITE BLOOD COUNT 9.7 X10'3 (4.5-11.0)
[2021-12-15] MEDS: methylPREDNISolone sod succ 125mg/2ml vial IV SCH (10:12)
[2021-12-15 10:13] VITALS: BP 122/59
[2021-12-15] MEDS: clopidogrel 75mg tablet PEG SCH (10:17)
[2021-12-15] MEDS: losartan 25mg tablet PEG SCH (10:17)
[2021-12-15] MEDS: ferrous sulfate 300mg/5ml UD oral liquid PEG SCH (10:17)
[2021-12-15] MEDS: levoTHYROXINE 88mcg tablet PEG SCH (10:17)
[2021-12-15] MEDS: finasteride 5mg tablet PO SCH (10:18)
[2021-12-15] MEDS: cefepime inj. 0.5 GM in normal saline 100ml IV soln 100 ML IV SCH (10:18)
[2021-12-15] MEDS: pantoprazole 40mg IV 40 MG in normal saline 100ml IV soln 100 ML IV SCH ×2 (10:18→23:51)
[2021-12-15] MEDS: iron sucrose complex injection 200 MG in normal saline 100ml IV soln 100 ML IV SCH (10:19)
[2021-12-15] MEDS: docusate sodium 100mg/10ml UD cup PEG SCH ×2 (10:19→23:51)
--- NOTE | 2021-12-15 11:30 | NUR ---
Family, Dariela, updated, all questions answered. Pt son to visit today.
--- NOTE | 2021-12-15 12:48 | NUR ---
Spoke with ANDREA Mcintyre, to restart TF , will give pt 1 carton , 237 ml with H2O flush 70 ml before and after TF administration, Will resume to 350 ml with next feeding.
[2021-12-15 14:24] LABS: HEMOGLOBIN 7.4 g/dl (14.0-17.9); MEAN CORPUSCULAR HEMOGLOBIN 27.9 PG (27.0-31.0); MEAN CORPUSCULAR HGB CONC 32.4 g/dL (33.0-36.5); MEAN CORPUSCULAR VOLUME 85.9 FL (78-98); MEAN PLATELET VOLUME 8.6 FL (7.4-10.4); PLATELET COUNT 103 X10'3 (140-440); RED BLOOD COUNT 2.67 X10'6 (4.70-6.10); RED CELL DISTRIBUTION WIDTH 16.3 % (11.5-14.5)
[2021-12-15 14:42] LABS: ALBUMIN 2.8 G/DL (3.4-5.0); ALBUMIN/GLOBULIN RATIO 0.9 (1.1-1.5); ALKALINE PHOSPHATASE 147 IU/L (46-116); ANION GAP 11 (8-16); BILIRUBIN,TOTAL 1.8 MG/DL (0.1-1.0); CALCIUM 7.9 MG/DL (8.5-10.1); CHLORIDE 100 MMOL/L (99-107); CREATININE 4.88 MG/DL (0.60-1.10); GLUCOSE 169 MG/DL (70-104); MAGNESIUM 3.4 MG/DL (1.5-2.4); PHOSPHORUS 6.5 MG/DL (2.3-4.5); POTASSIUM 4.5 MMOL/L (3.5-5.1); SODIUM 143 MMOL/L (135-145); TOTAL CARBON DIOXIDE 31.8 MMOL/L (24-32); TOTAL PROTEIN 5.9 G/DL (6.4-8.2); eGFR 11 ML/MIN
[2021-12-15 14:56] LABS: ALANINE AMINOTRANSFERASE 3352 U/L (12-78); ASPARTATE AMINO TRANSFERASE 2340 U/L (10-37); BLOOD UREA NITROGEN 152 MG/DL (7-18); BUN/CREATININE RATIO 31.1 (5.4-32.0)
--- NOTE | 2021-12-15 15:00 | NUR ---
Pt has frequent sporadic EPS movements BUE. Dr Peres paged with notification. Will continue to monitor.
--- NOTE | 2021-12-15 15:26 | NUR ---
PAGER ID: [phone] Dr Peres MESSAGE: [phone], [place]iena, son Claudio is at bedside, would appreciate update. Thank you, Lisset [phone]
[2021-12-15] MEDS ORDERED: bisacodyl 10mg suppository rectal RC STA (15:43)
[2021-12-15 16:24] VITALS: BP 126/62
[2021-12-15 18:00] VITALS: BP 126/63
--- NOTE | 2021-12-15 18:45 | NUR ---
Patient in room PCU 3028. I have received report from Lisset and had the opportunity to ask questions and assume patient care.
--- NOTE | 2021-12-15 19:21 | NUR ---
Pt restarted TF, bolus feeds this shift, 350 ml TF, with 140 free water, 70 ml before and 70 ml after, REceived 2 feeds, 1st only 237 ml as advised by Oil Pump Station Operator Chief. 2nd feed 350 ml, as ordered.
[2021-12-15 20:49] LABS: HEMATOCRIT 23.3 % (42.0-52.0); HEMOGLOBIN 7.7 g/dl (14.0-17.9); MEAN CORPUSCULAR HGB CONC 32.9 g/dL (33.0-36.5); MEAN CORPUSCULAR VOLUME 85.3 FL (78-98); MEAN PLATELET VOLUME 8.4 FL (7.4-10.4); PLATELET COUNT 101 X10'3 (140-440); RED BLOOD COUNT 2.74 X10'6 (4.70-6.10); RED CELL DISTRIBUTION WIDTH 16.7 % (11.5-14.5); WHITE BLOOD COUNT 11.2 X10'3 (4.5-11.0)
[2021-12-15 22:00] VITALS: BP 115/61
[2021-12-15] MEDS: tamsulosin 0.4mg capsule PO SCH (23:50)
[2021-12-16 00:25] VITALS: BP 109/49
--- NOTE | 2021-12-16 00:40 | NUR ---
Called and spoke with Dr. Acosta in regards to pt possibly aspirating tube feeds through trach approximately 5 minutes after tube feed bolus and flush was given. Updated him on pt's status and oxygen sats up to 91-92% on 12L and 100% trach collar + 5L/NC. Dr gave new order to make pt NPO again. Addendum: 12/16/21 at 0611 by Adrienne Forde RN Called and spoke with Dr. Acosta. Updated him thatpt desating down to 86%. Pt placed on nonrebreather mask besides 12L/trach collar. Oxygen sats steady at 88-89%. ordered chest x-ray. See order.
[2021-12-16 02:00] VITALS: BP 105/51
[2021-12-16 02:55] LABS: EOSINOPHILS % (AUTO) 0.1 % (0-6); HEMOGLOBIN 7.3 g/dl (14.0-17.9); MEAN CORPUSCULAR HEMOGLOBIN 27.9 PG (27.0-31.0); MEAN CORPUSCULAR HGB CONC 32.3 g/dL (33.0-36.5); MEAN CORPUSCULAR VOLUME 86.4 FL (78-98); NEUTROPHILS # (AUTO) 10.1 X10'3 (1.8-7.7); PLATELET COUNT 97 X10'3 (140-440); RED BLOOD COUNT 2.62 X10'6 (4.70-6.10)
[2021-12-16 02:57] LABS: BASOPHILS # (AUTO) 0.2 X10'3 (0-0.2); BASOPHILS % (AUTO) 1.3 % (0-1); HEMATOCRIT 22.7 % (42.0-52.0); LYMPHOCYTES # (AUTO) 0.6 X10'3 (1.1-4.8); LYMPHOCYTES % (AUTO) 4.7 % (21-51); MEAN PLATELET VOLUME 8.8 FL (7.4-10.4); MONOCYTES # (AUTO) 0.8 X10'3 (0-0.9); MONOCYTES % (AUTO) 7.2 % (2-12); NEUTROPHILS % (AUTO) 86.7 % (42-75); RED CELL DISTRIBUTION WIDTH 16.9 % (11.5-14.5); WHITE BLOOD COUNT 11.7 X10'3 (4.5-11.0)
[2021-12-16 03:02] LABS: ALBUMIN 2.8 G/DL (3.4-5.0); ANION GAP 13 (8-16); CALCIUM 7.8 MG/DL (8.5-10.1); CHLORIDE 99 MMOL/L (99-107); GLUCOSE 187 MG/DL (70-104); MAGNESIUM 3.8 MG/DL (1.5-2.4); PHOSPHORUS 6.4 MG/DL (2.3-4.5); POTASSIUM 4.9 MMOL/L (3.5-5.1); PREALBUMIN 16.7 MG/DL (19-36); SODIUM 142 MMOL/L (135-145); TOTAL CARBON DIOXIDE 29.8 MMOL/L (24-32); eGFR 10 ML/MIN
[2021-12-16 03:23] LABS: BUN/CREATININE RATIO 32.5 (5.4-32.0)
[2021-12-16 03:24] LABS: BLOOD UREA NITROGEN 172 MG/DL (7-18)
[2021-12-16 03:31] LABS: NUCLEATED RED BLOOD CELLS 8 /100WBC (0-0); TOTAL CELLS COUNTED 100
[2021-12-16 03:34] LABS: ANISOCYTOSIS 1+; PLATELET ESTIMATE DECREASED
[2021-12-16 03:36] LABS: ELLIPTOCYTES FEW; POLYCHROMASIA 1+; SCHISTOCYTES FEW
[2021-12-16 03:39] LABS: LARGE PLATELETS FEW
[2021-12-16] MEDS: ipratropium/albuterol 3ml nebule NEB SCH ×3 (04:02→11:36)
[2021-12-16 06:00] VITALS: BP 107/53
--- NOTE | 2021-12-16 06:57 | NUR ---
Problems reprioritized. Patient report given, questions answered & plan of care reviewed with DOROTHEA Darling. Pt resting in bed. Oxygen sats 91%. He is in no acute distress at time of handoff.
[2021-12-16] MEDS: levoTHYROXINE 88mcg tablet PEG SCH (07:00)
[2021-12-16] MEDS: docusate sodium 100mg/10ml UD cup PEG SCH (08:00)
[2021-12-16] MEDS: ferrous sulfate 300mg/5ml UD oral liquid PEG SCH (08:00)
[2021-12-16] MEDS: losartan 25mg tablet PEG SCH (08:00)
[2021-12-16] MEDS: finasteride 5mg tablet PO SCH (08:00)
[2021-12-16] MEDS: clopidogrel 75mg tablet PEG SCH (08:00)
--- NOTE | 2021-12-16 08:12 | NUR ---
Page Sent Dr Peres promotional table spacer PAGER ID: [phone] MESSAGE: [phone] [place]a, update, increased O2 demand, TF on hold for aspiration, has sporadic tremors. Addendum: 12/16/21 at 0846 by Lisset Forde RN message sent to Dr Peres, pt has increasing O2 demands, TF on hold due to aspiration,
--- NOTE | 2021-12-16 08:43 | NUR ---
nOtifed Dr Peres, pt not responding, called Claudio,Son, left message advising to come into hospital as soon as he can.
[2021-12-16 08:48] LABS: HEMATOCRIT 23.7 % (42.0-52.0); HEMOGLOBIN 7.9 g/dl (14.0-17.9); MEAN CORPUSCULAR HEMOGLOBIN 28.6 PG (27.0-31.0); MEAN CORPUSCULAR HGB CONC 33.2 g/dL (33.0-36.5); MEAN CORPUSCULAR VOLUME 85.9 FL (78-98); MEAN PLATELET VOLUME 8.7 FL (7.4-10.4); PLATELET COUNT 103 X10'3 (140-440); RED BLOOD COUNT 2.75 X10'6 (4.70-6.10); WHITE BLOOD COUNT 8.6 X10'3 (4.5-11.0)
[2021-12-16] MEDS: cefepime inj. 0.5 GM in normal saline 100ml IV soln 100 ML IV SCH (09:55)
[2021-12-16] MEDS: methylPREDNISolone sod succ 125mg/2ml vial IV SCH (09:55)
[2021-12-16] MEDS: iron sucrose complex injection 200 MG in normal saline 100ml IV soln 100 ML IV SCH (09:56)
[2021-12-16] MEDS: pantoprazole 40mg IV 40 MG in normal saline 100ml IV soln 100 ML IV SCH (09:56)
[2021-12-16 11:11] LABS: A/G RATIO 1.2 (0.7-1.7); ALBUMIN 3.1 g/dL (2.9-4.4); BETA GLOBULIN 0.7 g/dL (0.7-1.3); GAMMA GLOBULIN 0.7 g/dL (0.4-1.8); GLOBULIN, TOTAL 2.6 g/dL (2.2-3.9); M-SPIKE Not Observed g/dL (Not Observed); PROTEIN, TOTAL, SERUM 5.7 g/dL (6.0-8.5)
--- NOTE | 2021-12-16 11:31 | NUR ---
PAGER ID: [phone] MESSAGE: [phone], Siena, Are you going to put in comfort care orders or am I supposed to do it? Thank you, Lisset [phone]
--- NOTE | 2021-12-16 12:47 | NUR ---
PAGER ID: [phone] Dr Peres MESSAGE: [phone], Ehnes, please place comfort care orders and let me know when to take pt off O2., Thank you, Lisset [phone]
--- NOTE | 2021-12-16 15:50 | NUR ---
Son is at bedside, has requested that oxygen not be removed until tomorrow morning. He wants to be at bedside at that time.
--- NOTE | 2021-12-16 15:55 | NUR ---
paged Dr Peres PAGER ID: [phone] MESSAGE: [phone], Silasprashanth, update, son requests O2 to be removed in the AM. thank you, Lisset [phone]
--- NOTE | 2021-12-16 17:37 | NUR ---
Page Sent promotional table spacer PAGER ID: [phone] MESSAGE: [phone] KATHY . PATIENT PASSED AT 1729. JOHNNA @[phone] (50 character message out of a maximum of 240)
--- NOTE | 2021-12-16 17:37 | NUR ---
RN IS TO DOCUMENT YES TO ALL APPLICABLE AREAS Pronouncement of : 1. Time Physician Notified:[id number] 2. Date of :12/16/21 3. Time of : 1728 4. DNR/Withdraw life support documented:YES PT DNR WITH CC 5. Monitor strip has been placed on chart:YES 6. Assessment process is of one-minute duration and includes following criteria: a) Patient is unresponsive to all stimuli: YES b) Pupils fixed and non-reactive:YES c) Auscultation of precordium reveals absence of heart tones:YES d) Auscultation of lungs reveals absence of breath sounds:YES e) Absence of blood pressure / all vital signs:YES f) QRS complexes are not present on monitor / EKG strip:NOT PRESENT g) Pacer spikes without capture:N/A 4. Comments: PATIENT PASSED PEACEFULLY. EXPECTED. SON HAS BEEN NOTIFIED AND IS AT BEDSIDE. PATIENT'S RINGS AND WATCH HAVE BEEN REMOVED AND GIVEN TO SON AT HIS REQUEST AND GIVEN TO SON.
--- NOTE | 2021-12-16 18:22 | NUR ---
Patient in room PCU 3028. I have received report from DOROTHEA Darling and had the opportunity to ask questions and assume patient care.Paperwork done for patient passing away.
--- NOTE | 2021-12-16 19:46 | NUR ---
Kavon Forde from [facility] at bedside. Pt body transferred to cart. Paperwork competed especially Expiration Memorandum. Belongings were already sent home with son earlier. Verified that there were no belongings left in pt room. Pt departed at approximately 194. Addendum: 12/16/21 at 1950 by Adrienne Forde RN Charge nurse, Shelly, verifed all necessary documentation done before pt body left.
== END 2021-12-16 19:42 ==
LOC: ER 14:32 → ED HOLD 17:21 → PCU 3S 12-10 11:52
PROVIDERS: ADMIT Internal Medicine; ATTEND Internal Medicine
PROC: 5A0945A Assistance with Respiratory Ventilation, 24-96 Consecutive Hours, High Flow/Velocity Cannula (ICD-10-PCS; principal; 2021-12-09)
PROC: 0D9670Z Drainage of Stomach with Drainage Device, Via Natural or Artificial Opening (ICD-10-PCS; 2021-12-13)
DX: I13.0 Hypertensive heart and chronic kidney disease with heart failure and stage 1 through stage 4 chronic kidney disease, or unspecified chronic kidney disease (principal); I21.A1 Myocardial infarction type 2; I50.23 Acute on chronic systolic (congestive) heart failure; J69.0 Pneumonitis due to inhalation of food and vomit; J96.20 Acute and chronic respiratory failure, unspecified whether with hypoxia or hypercapnia; N17.9 Acute kidney failure, unspecified; E87.1 Hypo-osmolality and hyponatremia; Z66 Do not resuscitate; D64.9 Anemia, unspecified; E03.9 Hypothyroidism, unspecified; D50.9 Iron deficiency anemia, unspecified; E78.5 Hyperlipidemia, unspecified; J43.9 Emphysema, unspecified; N18.9 Chronic kidney disease, unspecified; W18.39XA Other fall on same level, initial encounter; Y93.01 Activity, walking, marching and hiking; N40.0 Benign prostatic hyperplasia without lower urinary tract symptoms; Z51.5 Encounter for palliative care; Z79.02 Long term (current) use of antithrombotics/antiplatelets; Z85.21 Personal history of malignant neoplasm of larynx; Z85.819 Personal history of malignant neoplasm of unspecified site of lip, oral cavity, and pharynx; Z86.14 Personal history of Methicillin resistant Staphylococcus aureus infection; Z93.0 Tracheostomy status; Z87.891 Personal history of nicotine dependence; Z93.1 Gastrostomy status; Y99.8 Other external cause status; Y92.000 Kitchen of unspecified non-institutional (private) residence as the place of occurrence of the external cause; Z88.8 Allergy status to other drugs, medicaments and biological substances; K59.00 Constipation, unspecified
CPT/HCPCS: 36415; 36600; 70450; 71045; 74018; 74176; 80048; 80053; 80202; 82803; 82948; 83540; 83550; 83605; 83735; 83880; 84100; 84134; 84145; 84155; 84165; 84443; 84484; 85007; 85018; 85025; 85027; 85730; 87040; 87081; 93306; 94640; 94760; 96365; 96367; 96375; 96376; 97110; 97162; 97530; 99291; A4314; A4349; A4620; A4624; A4628; A6209; A6258; A6449; A7525; A7526; C9113; G0378; J0692; J0696; J1644; J1756; J1940; J2543; J2930; J3370; J3490; J7030; J7050